=== PATIENT | female | born 1950 | race Caucasian/White ===

== ENCOUNTER 2022-02-15 14:38 | Inpatient (IN) | payer MEDICARE, OTHER ==
[~2022-02-15] VITALS: Ht 165.1 cm; Wt 52.0 kg
[2022-02-15 15:04] LABS: BASOPHILS ABSOLUTE AUTO 0.13 K/mm3 (0.00-0.23); BASOPHILS PERCENT AUTO 2 % (0-2); EOSINOPHILS ABSOLUTE AUTO 0.73 K/mm3 (0.00-0.68); EOSINOPHILS PERCENT AUTO 9 % (0-6); Hematocrit 42.9 % (33.0-51.0); Hemoglobin 14.5 g/dL (11.5-16.0); IMMATURE GRAN ABSOLUTE AUTO 0.02 K/mm3 (0.00-0.10); IMMATURE GRAN PERCENT AUTO 0 % (0-1); LYMPHOCYTES ABSOLUTE AUTO 1.96 K/mm3 (0.84-5.20); LYMPHOCYTES PERCENT AUTO 25 % (21-46); MONOCYTES ABSOLUTE AUTO 0.57 K/mm3 (0.16-1.47); MONOCYTES PERCENT AUTO 7 % (4-13); Mean Corpuscular HGB 32.8 pg (26.0-34.0); Mean Corpuscular HGB Conc 33.8 g/dL (31.5-36.5); Mean Corpuscular Volume 97 fL (80-100); Mean Platelet Volume 9.6 fL (9.1-12.4); NEUTROPHILS ABSOLUTE AUTO 4.56 K/mm3 (1.96-9.15); NEUTROPHILS PERCENT AUTO 57 % (41-73); Platelet Count 294 K/mm3 (150-400); RDW Coefficient Variation 12.2 % (11.7-14.2); Red Blood Cell Count 4.42 M/mm3 (3.80-5.20); White Blood Cell Count 7.97 K/mm3 (4.00-11.30)
[2022-02-15] MEDS ORDERED: ANORO ELLIPTA1 EAC1 INH (15:22)
[2022-02-15] MEDS ORDERED: IPRAT-ALBUT 0.5-3 ML INH (15:22)
[2022-02-15] MEDS ORDERED: LOSA50 PO (15:23)
[2022-02-15] MEDS ORDERED: AMLO5 PO (15:24)
[2022-02-15 15:32] LABS: Albumin, Blood 4.1 g/dL (3.4-5.0); Albumin/Globulin Ratio 1.2 (0.8-1.8); Bilirubin, Total 0.4 mg/dL (0.1-1.0); Bun/Creatinine Ratio 32.3 (12.0-20.0); Calcium, Blood 9.6 mg/dL (8.5-10.1); Creatinine, Blood 0.53 mg/dL (0.40-1.00); Globulin, Blood 3.5 g/dL (2.2-4.0); Potassium, Blood 3.7 mmol/L (3.5-5.5); Thyroid Stimulating Hormone 2.67 uIU/mL (0.360-4.800); Total Protein, Blood 7.6 g/dL (6.4-8.2)
--- NOTE | 2022-02-16 03:55 | NUR ---
ADMIT NOTE 71 YR OLD FEMALE ADMITTED TO FLOOR FROM THE ED WITH DX OF COPD EXACERBATION. HX EMPHYSEMA, ALERT AND ORIENTED X 4. SOLUMEDROL ADMINISTERED - SEE MAR FOR DETAILS. SEE RT DOCUMENTATION FOR DETAILS. NOTESOME SOB WITH PHYSICAL EXERTION. ENCOURAGED TO USE CALL LIGHT IF NEEDING TO GET OUT OF BED FOR HER SAFETY. CALL LIGHT IN REACH
--- NOTE | 2022-02-16 04:00 | NUR ---
INSURANCE AGENT SUMMARY PT ADMITTED EARLIER IN THE SHIFT WITH COPD EXACERBATION. RT ASSESSED HER AND PROVIDED TREATMENTS. RECEIVING MEDS TO HELP RESPIRATIONS. NOTE SOB WITH PHYSICAL EXERTION. INSTRUCTED TO USE CALL LIGHT IF NEEDING TO GET OOB. CURRENTLY RESTING QUIETLY. VSS.
[2022-02-16 05:03] LABS: BASOPHILS ABSOLUTE AUTO 0.02 K/mm3 (0.00-0.23); BASOPHILS PERCENT AUTO 0 % (0-2); EOSINOPHILS PERCENT AUTO 0 % (0-6); Hematocrit 39.2 % (33.0-51.0); Hemoglobin 13.6 g/dL (11.5-16.0); IMMATURE GRAN ABSOLUTE AUTO 0.01 K/mm3 (0.00-0.10); IMMATURE GRAN PERCENT AUTO 0 % (0-1); LYMPHOCYTES ABSOLUTE AUTO 0.55 K/mm3 (0.84-5.20); LYMPHOCYTES PERCENT AUTO 8 % (21-46); MONOCYTES ABSOLUTE AUTO 0.04 K/mm3 (0.16-1.47); MONOCYTES PERCENT AUTO 1 % (4-13); Mean Corpuscular HGB 32.9 pg (26.0-34.0); Mean Corpuscular HGB Conc 34.7 g/dL (31.5-36.5); Mean Corpuscular Volume 95 fL (80-100); Mean Platelet Volume 9.7 fL (9.1-12.4); NEUTROPHILS ABSOLUTE AUTO 6.58 K/mm3 (1.96-9.15); NEUTROPHILS PERCENT AUTO 91 % (41-73); Platelet Count 292 K/mm3 (150-400); RDW Coefficient Variation 12.1 % (11.7-14.2); RDW Standard Deviation 42.8 fL (35.1-46.3); Red Blood Cell Count 4.13 M/mm3 (3.80-5.20)
[2022-02-16 05:41] LABS: Bun/Creatinine Ratio 35.7 (12.0-20.0); Calcium, Blood 10.1 mg/dL (8.5-10.1); Creatinine, Blood 0.5 mg/dL (0.40-1.00)
--- NOTE | 2022-02-16 19:37 | NUR ---
SHIFT SUMMARY; PATIENT HAD NO ACUTE CHANGES IN CONDITION NOTED DURING DAY SHIFT. SHE REMAINS ON 3 LITERS. HOME O2 EVAL BY MARGARET PORTILLO SHOWS PATIENT NEEDS O2 AT HOME. SHE DESATS WITH EXERTION AND AT BASELINE STILL REQUIRES O2 SUPPORT. PATIENT IS AO 4 DURING DAY AND HAS PLEASANT AFFECT AND IS COOPERATIVE WITH CARE. SHE AMBULATES WITH STAND BY ASSIST TO THE BATHROOM AND BACK USING A FWW. SHE USES CALL LIGHT TO MAKE HER NEEDS KNOWN AND WAITS FOR STAFF TO COME TO ROOM TO GET OUT OF BED. HAND OFF AT SHIFT CHANGE TO CALLY MCKEON
--- NOTE | 2022-02-17 00:11 | NUR ---
AWAKENED FOR SCHEDULED MED. VOICED SLEEPING BETTER HERE, NOT ANXIOUS WHE WAS BEFORE. CALL LIGHT IN REACH
--- NOTE | 2022-02-17 03:25 | NUR ---
QUARRY EXTRACTION WORKER SUMMARY HAS BEEN RSTING QUIETLY WITH OCCASIONAL INTERRUPTIONS - UP TO BATHROOM WITH ASSIST. AFFECT LESS ANXIOUS THAN NOTED 24 HR PREVIOUS. VOICED FELT MORE AT EASE HERE, FEELING LESS ANXIOUS. O2 PER NC AT 2L/MIN. LUNG SOUNDS REMAIN DIMINISHED. CALL LIGHT IN REACH.
[2022-02-17] MEDS ORDERED: BUSP5 PO (16:06)
[2022-02-17] MEDS ORDERED: DILT120 PO (16:06)
[2022-02-17] MEDS ORDERED: PRED20 PO (16:08)
[2022-02-17] MEDS ORDERED: Acetaminophen650 M1 PO (16:09)
--- NOTE | 2022-02-17 16:44 | NUR ---
DISCHARGE SUMMARY PATIENT DISCHARGED HOME WITH HOME HEALTH. DISCHARGE PAPERWORK REVIEWED WITH PATIENT AND ALL QUESTIONS ANSWERED. PRESCRIPTIONS SENT TO PATIENTS PREFERRED PHARMACY. IV AND TELE D/C'D. CRISTIAN DELIVERED O2 TANK TO HOSPITAL ROOM AND WILL BRING CONCENTRATOR TO PATIENTS HOME. ALL BELONGINGS PACKED AND AWAITING PATIENTS TO ARRIVE AND TAKE HER HOME.
== END 2022-02-17 16:58 | disposition home health service (06) | DRG 189 ==
LOC: ER 14:38 → MEDS 14:39
PROVIDERS: Physician Assistant; ADMIT Internal Medicine
DX: J96.01 Acute respiratory failure with hypoxia (principal); R64 Cachexia; Z68.1 Body mass index [BMI] 19.9 or less, adult; J43.9 Emphysema, unspecified; Z66 Do not resuscitate; I10 Essential (primary) hypertension; R00.0 Tachycardia, unspecified; F41.1 Generalized anxiety disorder; M81.0 Age-related osteoporosis without current pathological fracture; Z87.891 Personal history of nicotine dependence; Z88.1 Allergy status to other antibiotic agents; Z79.51 Long term (current) use of inhaled steroids; Z79.899 Other long term (current) drug therapy; R73.9 Hyperglycemia, unspecified; T38.0X5A Adverse effect of glucocorticoids and synthetic analogues, initial encounter
CPT/HCPCS: 36415; 71045; 71260; 80048; 80053; 83880; 84443; 84484; 85025; 93005; 93010; 94640; 94664; 94760; 94761; 96372; 96374-59; 96376; 99285-25; A9270; G0378; J1650; J2930; J7030; Q9967

== ENCOUNTER 2022-03-20 20:44 | Inpatient (IN) | payer MEDICARE, OTHER ==
[~2022-03-20] VITALS: Ht 165.1 cm; Wt 49.9 kg
[~2022-03-20 20:44] MED LIST: AMLO5 PO; ANORO ELLIPTA1 EAC1 INH; Acetaminophen650 M1 PO; BUSP5 PO; DILT120 PO; IPRAT-ALBUT 0.5-3 ML INH; LOSA50 PO; PRED20 PO
--- NOTE | 2022-03-21 04:27 | NUR ---
REPORT RECEIVED FROM LYNSEY VALDEZ NURSE. ON 03/21/22 @0205, PT ADMITTED VIA STRETCHER. PT ON 02@ 4LPM VIA N/C. SOB ON EXERTION WHEN PT TRANSFERRED FROM STRETCHER TO BED.
--- NOTE | 2022-03-21 04:30 | NUR ---
A&OX4. V/S WNL. 02 @4LPM VIA PA. SBA. IV TO L) AC. TELE: SINUS TACHY:104BPM. VOIDS WITHOUT DIFFICULTY. NO BM THIS SHIFT. LAST BM ON 03/19/22. SOB ON EXERTION. WILL CONTINUE TO MONITOR.
[2022-03-21 04:56] LABS: BASOPHILS PERCENT AUTO 2 % (0-2); EOSINOPHILS ABSOLUTE AUTO 0.03 K/mm3 (0.00-0.68); EOSINOPHILS PERCENT AUTO 1 % (0-6); Hematocrit 39.6 % (33.0-51.0); Hemoglobin 13.3 g/dL (11.5-16.0); IMMATURE GRAN ABSOLUTE AUTO 0.01 K/mm3 (0.00-0.10); IMMATURE GRAN PERCENT AUTO 0 % (0-1); LYMPHOCYTES ABSOLUTE AUTO 0.43 K/mm3 (0.84-5.20); LYMPHOCYTES PERCENT AUTO 7 % (21-46); MONOCYTES ABSOLUTE AUTO 0.06 K/mm3 (0.16-1.47); MONOCYTES PERCENT AUTO 1 % (4-13); Mean Corpuscular HGB 32.3 pg (26.0-34.0); Mean Corpuscular HGB Conc 33.6 g/dL (31.5-36.5); Mean Corpuscular Volume 96 fL (80-100); Mean Platelet Volume 9.5 fL (9.1-12.4); NEUTROPHILS ABSOLUTE AUTO 5.91 K/mm3 (1.96-9.15); NEUTROPHILS PERCENT AUTO 90 % (41-73); Platelet Count 264 K/mm3 (150-400); RDW Coefficient Variation 12.3 % (11.7-14.2); Red Blood Cell Count 4.12 M/mm3 (3.80-5.20); White Blood Cell Count 6.54 K/mm3 (4.00-11.30)
[2022-03-21 05:45] LABS: Albumin, Blood 3.7 g/dL (3.4-5.0); Albumin/Globulin Ratio 1.2 (0.8-1.8); Bilirubin, Total 0.3 mg/dL (0.1-1.0); Bun/Creatinine Ratio 42.3 (12.0-20.0); Calcium, Blood 9.5 mg/dL (8.5-10.1); Creatinine, Blood 0.59 mg/dL (0.40-1.00); Globulin, Blood 3.2 g/dL (2.2-4.0); Potassium, Blood 3.5 mmol/L (3.5-5.5); Total Protein, Blood 6.9 g/dL (6.4-8.2)
--- NOTE | 2022-03-21 09:41 | NUR ---
ADVANCED DIET TOLERATED PATIENT REQUESTING DIET TO BE ADVANCED. Arabella.O. RECEIVED FROM DR. CROOK TO ADVANCE DIET.
[2022-03-21 16:35] LABS: Adenovirus Not Detected (NOT DETECT); Bordetella pertussis Not Detected (NOT DETECT); Chlamydophila pneumoniae Not Detected (NOT DETECT); Coronavirus 229E Not Detected (NOT DETECT); Coronavirus HKU1 Not Detected (NOT DETECT); Coronavirus NL63 Not Detected (NOT DETECT); Coronavirus OC43 Not Detected (NOT DETECT); Human Metapneumovirus Not Detected (NOT DETECT); Human Rhinovirus/Enterovirus Not Detected (NOT DETECT); Influenza A/2009-H1 Not Detected (NOT DETECT); Influenza A/H1 Not Detected (NOT DETECT); Influenza A/H3 Not Detected (NOT DETECT); Influenza B Not Detected (NOT DETECT); Mycoplasma pneumoniae Not Detected (NOT DETECT); Parainfluenza Virus 1 Not Detected (NOT DETECT); Parainfluenza Virus 2 Not Detected (NOT DETECT); Parainfluenza Virus 3 Not Detected (NOT DETECT); Parainfluenza Virus 4 Not Detected (NOT DETECT); Respiratory Syncytial Virus Not Detected (NOT DETECT); SARS-Cov-2 (COVID-19), BioFire Not Detected (NOT DETECT)
--- NOTE | 2022-03-21 17:45 | NUR ---
Shift Summary A/Ox4. Very pleasant and cooperative. Fearful to ambulate to bathroom alone due to dyspnea with exertion. Still on 4L O2. Lung sounds have wheezes throughout. Occ nonproductive cough. Resp panel obtained. Tele: SR 100's. Diet advanced to [facility] soft/ground meat and patient tolerating this well. New IV placed d/t previous one being tender. Continent of bowel and bladder. Medicated x 1 for MONTEJO with tylenol.
--- NOTE | 2022-03-22 04:59 | NUR ---
A&OX4. V/S WNL. TANK RIVETER TITRATED PT DOWN FROM 4LPM TO 2LPM VIA NC. O2 SAT >95% SBA. MECHANICAL SOFT DIET. PILLS WHOLE WITH WATER. VOIDS W/O DIFFICULTY. NO BM THIS SHIFT. IV TO R) FOREARM. FC. PRN ROBITUSSIN GIVEN FOR COUGH & TYLENOL, TRAMADOL GIVEN FOR HEADACHE ORDERED. HEADACHED RESOLVED. WILL CONTINUE TO MONITOR.
--- NOTE | 2022-03-22 17:28 | NUR ---
SHIFT SUMMARY PT A&O X 4. INDEPENDENT IN THE ROOM FOR RESTROOM USE. IS ON 2 L's O2 WITH SATS >92%. C/O MONTEJO, MEDICATED WITH ULTRAM PER MD ORDER. ANTICIPATE PT MAY BE DC'D HOME TOMORROW.
--- NOTE | 2022-03-23 05:22 | NUR ---
A&OX4. V/S WNL. 02@1LPM VIA NC. SBA. MECHANICAL SOFT DIET. PILLS WHOLE WITH WATER. IV TO R) FA. VOIDS W/O DIFFICULTY. NO BM THIS SHIFT. FC. PRN TRAMADOL FOR PAIN PER EMAR. WILL CONTINUE TO MONITOR.
--- NOTE | 2022-03-23 17:43 | NUR ---
SHIFT SUMMARY A&O X 4. VSS. ON RA WITH O2 SATS >90%. NO C/O DYSPNEA TODAY. MECHANICAL SOFT DIET, APPETITE GOOD. PIV IN R FA, INTACT & PATENT. INDEPENDENT IN THE ROOM FOR ALL ADL'S. VOIDS WITHOUT DIFFICULTY. PER MD ORDERS MEDICATED TWICE WITH TRAMADOL FOR MONTEJO WITH GOOD RESULTS. TAKE PILLS WHOLE WITH H2O. PLAN IS LIKELY DC HOME TOMORROW.
--- NOTE | 2022-03-24 12:52 | NUR ---
RUN OF SVT: NOTIFIED BY TELEMETRY THAT THE PATIENT HAD EXPERIENCED A RUN OF SVT. STRIP SCANNED IN. PATIENT WAS ASYMPTOMATIC. VITALS STABLE. PATIENT REPORTS THAT SHE SOMETIMES "DOES THIS". NOTIFIED DR. CALLES. NO NEW ORDERS AT THIS TIME.
--- NOTE | 2022-03-24 14:29 | NUR ---
DISCHARGE SUMMARY: PATIENT INDEPENDENT IN THE ROOM THROUGHOUT THE SHIFT. PATIENT STABLE ON RA WITH MINIMAL SHORTNESS OF BREATH. PATIENT DENIED DIZZINESS DURING OR DIFFICULTY WITH ACTIVITY. PATIENT READY FOR DISCHARGE. DISCHARGE RX FAXED TO [facility] PER PATIENT REQUEST. DISHARGED INSTRUCTIONS GIVEN TO PATIENT. ALL QUESTIONS AND CONCERNS ADDRESSED. PATIENT DENIES FURTHER NEEDS. PATIENT DISCHARGE IN WHEELCHAIR WITH DIRECTOR INFORMATION SECURITY AND . PATIENT STABLE AT TIME OF DISCHARGE.
== END 2022-03-24 14:26 | disposition home or self-care (01) | DRG 189 ==
LOC: ER 20:44 → MEDS 20:45
PROVIDERS: Internal Medicine; ADMIT Internal Medicine
DX: J96.21 Acute and chronic respiratory failure with hypoxia (principal); E43 Unspecified severe protein-calorie malnutrition; R64 Cachexia; Z68.1 Body mass index [BMI] 19.9 or less, adult; J43.9 Emphysema, unspecified; I10 Essential (primary) hypertension; Z20.822 Contact with and (suspected) exposure to COVID-19; F41.1 Generalized anxiety disorder; Z99.81 Dependence on supplemental oxygen; Z88.1 Allergy status to other antibiotic agents; Z79.51 Long term (current) use of inhaled steroids; Z79.52 Long term (current) use of systemic steroids; Z79.899 Other long term (current) drug therapy; Z87.891 Personal history of nicotine dependence
CPT/HCPCS: 0202U; 36415; 71045; 80053; 83880; 84145; 84484; 85025; 86140; 93005; 93010; 94640; 94644; 94664; 94760; 96374; 99285-25; A9270; J1650; J2920; J2930; J7512

== ENCOUNTER 2022-11-03 07:33 | Day surgery (SDC) | payer MEDICARE, OTHER | END 2022-11-03 22:36 | disposition home or self-care (01) | LOC: CT 07:33 | DX: R07.9 Chest pain, unspecified (principal); I10 Essential (primary) hypertension; E27.9 Disorder of adrenal gland, unspecified; R79.89 Other specified abnormal findings of blood chemistry | CPT/HCPCS: 75571 ==

== ENCOUNTER 2022-12-22 08:08 | Day surgery (SDC) | payer MEDICARE, OTHER ==
[~2022-12-22] VITALS: Ht 165.1 cm; Wt 61.7 kg
[~2022-12-22 08:08] MED LIST changes: +ASPI81CH PO; +ATOR20 PO; +Albuterol Sulfat2 MG PO; +FISH OIL; +MAGNESIUM PO; +METO25ER PO; +MULTIVITAMIN PO; +NITR.4SL SL; +NITRO-DUR1 EAC3 TD; +POTASSIUM PO; +PRED5 PO; +VITAMIN D3 PO; +Ventolin5 MG/1 ML INH
--- NOTE | 2022-12-22 09:53 | NUR ---
PATIENT ARRIVED TO RECOVERY ROOM ISTTING UPRIGHT IN RECLINER. R RADIAL TR BAND IN PLACE, SITE C/D/I, SOFT/NONTENDER, NO EVIDENCE OF HEMATOMA. PATIENT CONVERSING APPROPRIATELY. PATIENT DENYING ANY CHEST PAIN. VSS ON 2 L NC PER BASELINE.
--- NOTE | 2022-12-22 10:11 | NUR ---
PATIENT SITTING UP IN RECLINER, TOLERATING PO INTAKE WELL. R RADIAL TR BAND IN PLACE, SITE C/D/I, NO EVIDENCE OF HEMATOMA. VSS ON 2 L NC, BASELINE.
--- NOTE | 2022-12-22 11:06 | NUR ---
3 OF AIR REMOVED FROM R RADIAL TR BAND. SITE C/D/I, SOFT/NONTENDER, NO EVIDENCE OF HEMATOMA. DISCHARGE PAPEROWRK AND MEDICATIONS REVIEWED WITH PATIENT. ALL QUESTIONS WERE ANSWERED. PATIENT INSTRUCTED ON RADIAL ACCESS AFTER CARE. PT TOELRATING PO INTAKE WELL. VSS ON 2 L NC, BASELINE.
--- NOTE | 2022-12-22 11:34 | NUR ---
ALL AIR REMOVED FROM R RADIAL TR BAND. SITE C/D/I, SOFT/NONTENDER, NO EVIDENCE OF HEMATOMA. VSS ON 2 L NC PER BASELINE.
--- NOTE | 2022-12-22 11:53 | NUR ---
PATIENT DISCAHRGED HOME AT THIS TIME. PRESENT AT BEDSIDE. DISCHARGE INTRUCTIONS AND PATIETN BELONGINGS LEFT WITH PATIENT. R RADIAL TR BAND REMOVED, CLOTH DOT APPLIED. PATIENT INSTRUCTED ON RADIAL ACCESS AFTER CARE. PIV REMOVED WITHOUT DIFFICULTY, CATHETER INTACT. VSS ON 2 L NC PER BASELINE.
== END 2022-12-22 12:00 | disposition home or self-care (01) ==
LOC: MHTC 08:08
DX: I25.118 Atherosclerotic heart disease of native coronary artery with other forms of angina pectoris (principal); E27.8 Other specified disorders of adrenal gland; I10 Essential (primary) hypertension; J43.9 Emphysema, unspecified; K44.9 Diaphragmatic hernia without obstruction or gangrene
CPT/HCPCS: 76937; 93454; 99152; A9270; C1769; C1887; C1894; J1644; J2250; J3010; J7030; J7050; Q9967